=== PATIENT | female | born 1990 | race Caucasian/White ===

== ENCOUNTER 2016-09-16 10:18 | Emergency (ER) | payer MEDICAID ==
[~2016-09-16] VITALS: Ht 157.5 cm; Wt 53.0 kg
[~2016-09-16 10:18] MED LIST: ERYTOPOI LEFT EYE; IBUP400T22 PO
[2016-09-16 10:26] VITALS: Ht 157.5 cm; Wt 53.0 kg
[2016-09-16] MEDS ORDERED: BEN25 PO (11:23)
[2016-09-16] MEDS ORDERED: PRED20TA PO (11:23)
--- NOTE | 2016-09-16 13:20 | ERD ---
DATE OF SERVICE: HISTORY OF PRESENT ILLNESS: The patient is a 25-year-old female coming in complaining of a generali zed rash x2 days. She has never had this rash before. She has not taken any medications for her sym ptoms. Describes the rash is pruritic all over her body. No vomiting, no abdominal pain, no recent sore throat or URI symptoms. PAST MEDICAL HISTORY: Denies any other medical problems. ALLERGIES: DENIES ALLERGIES TO MEDICATIONS. PAST SURGICAL HISTORY: Denies. SOCIAL HISTORY: Denies. REVIEW OF SYSTEMS: A 12-point review of systems was done. Refer to HPI for positives, all other sy stems negative. PHYSICAL EXAMINATION VITAL SIGNS: Temperature is 97.4, pulse 62, blood pressure is 121/81, respiratory rate 20, O2 satur ation 100% on room air. Pain intensity 08/29/2016. GENERAL: The patient is well-appearing, well-nourished, no acute distress. HEENT: Atraumatic. Conjunctivae are pink. Pupils equal, round, and reactive to light. There is no s cleral icterus. Tympanic membranes clear bilaterally. Oropharynx clear. No nystagmus or photophobia . CHEST: Clear to auscultation bilaterally. There are no rales, wheezes or rhonchi. HEART: Regular rate and rhythm. No murmurs, clicks, rubs or gallops. No S3 or S4. ABDOMEN: Soft, nontender and nondistended. Good bowel sounds. No rebound or guarding. No gross dorota tonitis. No gross organomegaly or masses. No Funez sign or McBurney point ten SKIN: The patient has an urticarial rash noted on extensively over body. DIAGNOSIS: Rash. MEDICAL DECISION MAKING: I have low suspicion for life threatening rash, low suspicion for parasiti c infection, low suspicion for bacterial infection. The patient's symptoms appear to be allergic. DISCHARGE: The patient is discharged stable. Patient given prescription for prednisone and Benadry l and told to follow up with primary care within 1 to 2 days for reevaluation. The patient was told if symptoms progress or worsen to return to the ER. All other questions answered at time of discha rge. Discharge summary given at the time of departure. Patient understood and complied with plan. Dictated By: MICHAEL MANZO for MATHEW NEWMAN/JEREL Conf#: [id number] DID#: [id number]
== END 2016-09-16 12:04 | disposition home or self-care (01) ==
LOC: FTE 10:18
DX: L50.9 Urticaria, unspecified (principal)
CPT/HCPCS: 99283